=== PATIENT | male | born 2000 | race African-American/Black ===

== ENCOUNTER 2019-12-22 19:28 | Emergency (ER) | payer OTHER, SELFPAY ==
--- NOTE | 2019-12-22 19:30 | ED.MALEGU ---
HPI - Male Genitourinary General Chief complaint: Urogenital-Male Stated complaint: STD testing Time Seen by Provider: 12/22/19 19:30 Source: patient and RN notes reviewed History of Present Illness HPI Narrative: Patient is a 19-year-old male who presents the urgent care with complaints of contact with chlamydia. Patient states that he recently had intercourse/unprotected sex with a girl who reported that she had tested positive for chlamydia. Patient states that he was just notified this afternoon. Denies of any known symptoms. No other acute complaints. No acute distress noted. Patient aware of the plan of care. Some parts of this dictation were generated by voice recognition software and may contain typographical and/or grammatical inaccuracies. Related Data Allergies Allergy/AdvReac Type Severity Reaction Status Date / Time No Known Allergies Allergy Verified 12/22/19 19:34 Review of Systems Review of Systems: Narrative: CONSTITUTIONAL: Denies fever, chills, or sweats. EYES: Denies visual changes, redness, or discharge. ENT: Denies rhinorrhea, congestion, sore throat, or otalgia. CARDIOVASCULAR: Denies chest pain, palpitations, or edema. RESPIRATORY: Denies cough or dyspnea. GASTROINTESTINAL: Denies abdominal pain, nausea, vomiting, or diarrhea. GENITOURINARY: Denies dysuria or hematuria. Reports of contact with positive Chlamydia partner SKIN: Denies rash or itching. MUSCULOSKELETAL: Denies back pain, joint pain, or myalgia. NEUROLOGIC: Denies headache, numbness, or weakness. All other systems reviewed are negative, except as documented in HPI. PMFSH Comments At the time of my signature, I reviewed and agree with the nursing past medical, surgical, social, and family history. There is no relevant family history pertinent to the patient complaint. Exam Narrative: Exam Narrative: GENERAL: This is a well-nourished, well-developed patient, in no apparent distress. HEAD: normocephalic, atraumatic. EYES: PERRL. Sclera clear/white. Vision is grossly intact. EARS: External ears normal NOSE: External nose normal with no obvious nasal discharge, nares without redness, no rhinorrhea. THROAT: Mucous membranes moist NECK: Neck supple SKIN: warm, intact with no suspicious lesions or rash, good texture and turgor. NEURO: awake, alert, and oriented to person, place and time. There were no obvious focal neurologic abnormalities. EXTREMITIES: No clubbing, cyanosis, or edema. Course Vital Signs Vital signs: Vital Signs Temperature 98 F 12/22/19 19:35 Pulse Rate 74 12/22/19 19:35 Respiratory Rate 16 12/22/19 19:35 Blood Pressure 143/66 H 12/22/19 19:35 Pulse Oximetry 100 12/22/19 19:35 Temperature 98 F 12/22/19 19:35 Pulse Rate 74 12/22/19 19:35 Respiratory Rate 16 12/22/19 19:35 Blood Pressure 143/66 H 12/22/19 19:35 Pulse Oximetry 100 12/22/19 19:35 Reviewed-patient is informed that they may have pre-hypertension or hypertension based on a blood pressure reading in the department. I recommend the patient call the primary care provider listed on their discharge instructions or a physician of their choice this week to arrange follow-up for further evaluation of possible pre-hypertension or hypertension. MDM - Male Genitourinary MDM Narrative Medical decision making narrative: Patient is aware that lab results for chlamydia, trichomonas and gonorrhea will take approximately 1 week to result. We will call the patient with results as we receive the labs. Advised the patient to abstain from sexual activity for 2 weeks. Make sure to notify any and all partners of your positive contact with chlamydia. They should also be tested. The local health department can test and treat for all STDs. You were treated at the [facility] [place] for the above STDs. You will need to complete the prescription at the pharmacy and therefore, no further treatment should be necessary if 1 of the above STDs do come back positive.
[2019-12-22 19:35] VITALS: BP 143/66; PULSE 74; RESP 16; TEMP 36.6; O2SAT 100
[2019-12-22] MEDS: AZITHROMYCIN 250 MG TABLET 1000 MG PO (19:45)
[2019-12-22] MEDS: cefTRIAXone 250 MG VIAL IM (19:45)
[2019-12-22] MEDS: LIDOCAINE HCL 1% LOCAL INJ 20 ML VIAL 2.1 ML INFILTRATE (19:46)
== END 2019-12-22 20:05 | disposition home or self-care (01) ==
PROVIDERS: Emergency Provider Nurse Practitioner Family
DX: Z20.2 Contact with and (suspected) exposure to infections with a predominantly sexual mode of transmission (principal)
CPT/HCPCS: 87491; 87591; 87661; 96372; 99213; A9270; G0463; J0696